=== PATIENT | male | born 1965 | race African-American/Black ===

== ENCOUNTER 2017-05-03 15:44 | Inpatient (IN) | payer MEDICAID ==
[~2017-05-03] VITALS: Ht 177.8 cm; Wt 107.8 kg
[~2017-05-03 15:44] MED LIST: BACL0.13; HYDR-3546
[2017-05-03] MEDS ORDERED: ACETAMINOPHEN 500 MG TAB PO ONE (16:00)
[2017-05-03 16:20] LABS: Basophils # (auto) 0.1 uL; Basophils % (auto) 0.9 % (0.0-2.0); Eosinophils # (auto) 0.1 uL; Hematocrit 38.2 % (41.0-53.0); Lymphocytes # (auto) 1.3 uL; Mean Corpuscular Volume 80.5 fL (80.0-100.0); Red Cell Distribution Width 13.8 % (11.8-14.3)
[2017-05-03 16:22] LABS: Eosinophils % (auto) 0.9 % (0.0-7.0); Hemoglobin 12.3 g/dL (13.5-17.5); Lymphocytes % (auto) 9.8 % (10.0-50.0); Mean Corpuscular Hemoglobin 26.1 pg (28.0-32.0); Mean Corpuscular Hgb Conc. 32.4 g/dL (32.0-36.0); Monocytes # (auto) 1.5 uL; Neutrophils # (auto) 10.5 uL; Neutrophils % (auto) 77.4 % (37.0-80.0); Platelet Count (auto) 683 10^3/uL (140-450); Red Blood Cells 4.74 10^6/uL (4.5-5.90); White Blood Cell 13.6 10^3/uL (4.4-10.8)
[2017-05-03 16:27] LABS: Albumin 3.1 g/dL (3.4-5.0); BUN/Creatinine Ratio 9.2; Calcium 9.4 mg/dL (8.5-10.1); Potassium 4.3 mmol/L (3.5-5.1)
[2017-05-03 16:30] LABS: Bilirubin, Total 0.6 mg/dL (0.2-1.0)
[2017-05-03] MEDS ORDERED: IBUPROFEN 600 MG TAB PO ONE (20:15)
[2017-05-03] MEDS ORDERED: VANCOMYCIN 1GM/250ML 250 ML IV ONE ×2 (22:26→22:30)
[2017-05-03] MEDS ORDERED: cefTRIAXone 1GM/10ml IVPUSH 10 ML IV ONE (22:30)
[2017-05-04] MEDS ORDERED: ACETAMINOPHEN 500 MG TAB PO PRN (01:30)
[2017-05-04] MEDS ORDERED: VANCOMYCIN PER PHARMACY 0 MG IV SCH (01:30)
[2017-05-04] MEDS ORDERED: ONDANSETRON HCL 4 MG/2 ML VIAL IV PRN (01:30)
[2017-05-04] MEDS ORDERED: VANCOMYCIN 1GM/250ML 250 ML IV ONE (02:00)
[2017-05-04 03:05] VITALS: BP 120/70
[2017-05-04] MEDS: HYDROcodone-ACET 5/325MG TAB PO PRN ×2 (04:01→20:52)
[2017-05-04 05:02] VITALS: BP 115/62
[2017-05-04 09:00] VITALS: BP 135/68
[2017-05-04 09:41] LABS: Basophils # (auto) 0.1 uL; Eosinophils # (auto) 0.2 uL; Hemoglobin 10.9 g/dL (13.5-17.5); Lymphocytes # (auto) 1.1 uL; Monocytes # (auto) 0.9 uL; Red Cell Distribution Width 13.5 % (11.8-14.3)
[2017-05-04 09:43] LABS: Basophils % (auto) 0.7 % (0.0-2.0); Eosinophils % (auto) 1.7 % (0.0-7.0); Hematocrit 33.6 % (41.0-53.0); Lymphocytes % (auto) 10.2 % (10.0-50.0); Mean Corpuscular Hgb Conc. 32.5 g/dL (32.0-36.0); Monocytes % (auto) 7.9 % (0.0-12.0); Neutrophils # (auto) 8.8 uL; Neutrophils % (auto) 79.5 % (37.0-80.0); Platelet Count (auto) 584 10^3/uL (140-450); Red Blood Cells 4.21 10^6/uL (4.5-5.90); White Blood Cell 11.1 10^3/uL (4.4-10.8)
[2017-05-04 10:08] LABS: Albumin 2.6 g/dL (3.4-5.0); BUN/Creatinine Ratio 10.6; Bilirubin, Total 0.6 mg/dL (0.2-1.0); Calcium 8.9 mg/dL (8.5-10.1); Potassium 4.1 mmol/L (3.5-5.1); Total Protein 7.8 g/dL (6.4-8.2)
[2017-05-04] MEDS: VANCOMYCIN 1,250 MG in D5W 5% 250 ML IV SCH ×2 (11:33→22:31)
[2017-05-04 13:00] VITALS: BP 117/75
[2017-05-04] MEDS ORDERED: cefTRIAXone 1GM/10ml IVPUSH 10 ML IV ONE (13:30)
[2017-05-04] MEDS ORDERED: METO-159 PO (15:03)
[2017-05-04] MEDS ORDERED: BACLOFEN 10 MG TAB PO ONE (16:15)
[2017-05-04] MEDS: SODIUM CHLORIDE 0.9% 1,000 ML IV SCH (16:53)
[2017-05-04 17:00] VITALS: BP 141/77
[2017-05-04 21:35] VITALS: BP 152/87
[2017-05-04] MEDS: BACLOFEN 10 MG TAB PO SCH (21:42)
[2017-05-05] MEDS: SODIUM CHLORIDE 0.9% 1,000 ML IV SCH ×2 (03:08→15:35)
[2017-05-05 05:00] VITALS: BP 135/71
[2017-05-05] MEDS: MORPHINE SULFATE 4 MG/ML SYR/VIAL IV PRN ×2 (05:01→23:07)
[2017-05-05 05:30] LABS: Basophils # (auto) 0.1 uL; Eosinophils # (auto) 0.2 uL; Red Cell Distribution Width 13.4 % (11.8-14.3)
[2017-05-05 05:34] LABS: Basophils % (auto) 0.8 % (0.0-2.0); Eosinophils % (auto) 2.3 % (0.0-7.0); Hematocrit 32.3 % (41.0-53.0); Hemoglobin 10.7 g/dL (13.5-17.5); Lymphocytes % (auto) 19.2 % (10.0-50.0); Mean Corpuscular Hemoglobin 26.3 pg (28.0-32.0); Mean Corpuscular Hgb Conc. 33.1 g/dL (32.0-36.0); Mean Corpuscular Volume 79.4 fL (80.0-100.0); Monocytes # (auto) 1.2 uL; Monocytes % (auto) 12.3 % (0.0-12.0); Neutrophils # (auto) 6.7 uL; Neutrophils % (auto) 65.4 % (37.0-80.0); Platelet Count (auto) 573 10^3/uL (140-450); Red Blood Cells 4.06 10^6/uL (4.5-5.90); White Blood Cell 10.2 10^3/uL (4.4-10.8)
[2017-05-05 05:57] LABS: Albumin 2.5 g/dL (3.4-5.0); Calcium 8.5 mg/dL (8.5-10.1); Magnesium 2.1 mg/dL (1.6-2.6)
[2017-05-05 05:59] LABS: BUN/Creatinine Ratio 8.7
[2017-05-05] MEDS: BACLOFEN 10 MG TAB PO SCH ×3 (05:59→21:52)
[2017-05-05 06:02] LABS: Bilirubin, Total 0.4 mg/dL (0.2-1.0); Total Protein 7.4 g/dL (6.4-8.2)
[2017-05-05] MEDS: cefTRIAXone 1GM/10ml IVPUSH 10 ML IV SCH (08:01)
[2017-05-05 09:00] VITALS: BP 105/55
[2017-05-05] MEDS ORDERED: IOHEXOL 300 MG/ML 100ML BOTTLE IJ ONE (09:02)
[2017-05-05] MEDS: MICAFUNGIN SODIUM 100 MG in SODIUM CHL 0.9% 100 ML IV SCH (10:38)
[2017-05-05] MEDS: VANCOMYCIN 1,250 MG in D5W 5% 250 ML IV SCH ×2 (11:01→23:06)
[2017-05-05 13:00] VITALS: BP 137/85
[2017-05-05 16:54] VITALS: BP 144/90
[2017-05-05 20:00] VITALS: BP 128/82
[2017-05-05 22:00] VITALS: BP 128/82
[2017-05-06 05:00] VITALS: BP 138/81
[2017-05-06] MEDS: SODIUM CHLORIDE 0.9% 1,000 ML IV SCH ×2 (05:33→18:38)
[2017-05-06] MEDS: BACLOFEN 10 MG TAB PO SCH ×3 (05:34→22:03)
[2017-05-06 07:16] LABS: Albumin 2.6 g/dL (3.4-5.0); BUN/Creatinine Ratio 7.7; Bilirubin, Total 0.4 mg/dL (0.2-1.0); Calcium 8.9 mg/dL (8.5-10.1); Potassium 3.9 mmol/L (3.5-5.1); Total Protein 8.2 g/dL (6.4-8.2)
[2017-05-06 07:20] LABS: Basophils # (auto) 0 uL; Basophils % (auto) 0.4 % (0.0-2.0); Eosinophils # (auto) 0.3 uL; Eosinophils % (auto) 3.3 % (0.0-7.0); Hemoglobin 11.3 g/dL (13.5-17.5); Monocytes # (auto) 1.1 uL
[2017-05-06 07:23] LABS: Hematocrit 34.4 % (41.0-53.0); Lymphocytes # (auto) 1.8 uL; Lymphocytes % (auto) 17.7 % (10.0-50.0); Mean Corpuscular Hemoglobin 26.1 pg (28.0-32.0); Mean Corpuscular Hgb Conc. 32.7 g/dL (32.0-36.0); Mean Corpuscular Volume 79.8 fL (80.0-100.0); Neutrophils # (auto) 7.1 uL; Neutrophils % (auto) 67.6 % (37.0-80.0); Nucleated Red Blood Cells % 0.1 %; Platelet Count (auto) 674 10^3/uL (140-450); Red Blood Cells 4.31 10^6/uL (4.5-5.90); Red Cell Distribution Width 13.7 % (11.8-14.3); White Blood Cell 10.5 10^3/uL (4.4-10.8)
[2017-05-06 09:27] VITALS: BP 147/73
[2017-05-06] MEDS: ASCORBIC ACID 500 MG TAB PO SCH ×2 (10:43→22:04)
[2017-05-06] MEDS: MULTIPLE VITAMINS W/ MINERALS TAB PO SCH ×2 (10:44→22:04)
[2017-05-06] MEDS: MICAFUNGIN SODIUM 100 MG in SODIUM CHL 0.9% 100 ML IV SCH (10:44)
[2017-05-06] MEDS: cefTRIAXone 1GM/10ml IVPUSH 10 ML IV SCH (10:45)
[2017-05-06] MEDS ORDERED: MEROPENEM 1gm/20ml IVPUSH 20 ML IV ONE (12:00)
[2017-05-06 12:07] VITALS: BP 135/77
[2017-05-06 13:49] LABS: Hepatitis B Surface Antibody Negative
[2017-05-06 13:59] LABS: Hepatitis B Surface Antigen Negative (Negative)
[2017-05-06 14:27] LABS: Hepatitis A Total Antibody Negative; Hepatitis C Antibody Negative (Negative)
[2017-05-06 14:28] LABS: Hepatitis B Core Total AB Negative
[2017-05-06 17:00] VITALS: BP 151/89
[2017-05-06 20:00] VITALS: BP 138/74
[2017-05-06 22:00] VITALS: BP 138/74
[2017-05-06] MEDS: MORPHINE SULFATE 4 MG/ML SYR/VIAL IV PRN (23:19)
[2017-05-06] MEDS: MEROPENEM 1gm/20ml IVPUSH 20 ML IV SCH (23:30)
[2017-05-07] MEDS: MORPHINE SULFATE 4 MG/ML SYR/VIAL IV PRN ×4 (03:47→21:04)
[2017-05-07 05:00] VITALS: BP 114/69
[2017-05-07] MEDS: MEROPENEM 1gm/20ml IVPUSH 20 ML IV SCH ×3 (06:01→21:59)
[2017-05-07] MEDS: BACLOFEN 10 MG TAB PO SCH ×3 (06:02→21:59)
[2017-05-07 07:01] LABS: Eosinophils # (auto) 0.3 uL; Eosinophils % (auto) 4.4 % (0.0-7.0); Hemoglobin 11.1 g/dL (13.5-17.5); Mean Corpuscular Volume 79.5 fL (80.0-100.0); Monocytes # (auto) 0.9 uL
[2017-05-07 07:10] LABS: Basophils # (auto) 0 uL; Basophils % (auto) 0.6 % (0.0-2.0); Lymphocytes # (auto) 2.1 uL; Lymphocytes % (auto) 26.4 % (10.0-50.0); Mean Corpuscular Hgb Conc. 32.7 g/dL (32.0-36.0); Monocytes % (auto) 11.7 % (0.0-12.0); Neutrophils # (auto) 4.5 uL; Neutrophils % (auto) 56.9 % (37.0-80.0); Nucleated Red Blood Cells % 0.1 %; Platelet Count (auto) 624 10^3/uL (140-450); Red Blood Cells 4.28 10^6/uL (4.5-5.90); Red Cell Distribution Width 13.3 % (11.8-14.3); White Blood Cell 7.9 10^3/uL (4.4-10.8)
[2017-05-07 07:36] LABS: Albumin 2.5 g/dL (3.4-5.0); Bilirubin, Direct 0.1 mg/dL (0-0.2); Bilirubin, Total 0.3 mg/dL (0.2-1.0); Total Protein 7.9 g/dL (6.4-8.2)
[2017-05-07 08:00] VITALS: BP 114/66
[2017-05-07] MEDS: SODIUM CHLORIDE 0.9% 1,000 ML IV SCH ×2 (08:47→11:55)
[2017-05-07 09:00] VITALS: BP 114/66
[2017-05-07] MEDS: MICAFUNGIN SODIUM 100 MG in SODIUM CHL 0.9% 100 ML IV SCH (09:24)
[2017-05-07] MEDS: ASCORBIC ACID 500 MG TAB PO SCH ×2 (09:25→22:00)
[2017-05-07] MEDS: MULTIPLE VITAMINS W/ MINERALS TAB PO SCH ×2 (09:25→22:00)
[2017-05-07 13:00] VITALS: BP 126/75
[2017-05-07 20:00] VITALS: BP 145/86
[2017-05-07 22:00] VITALS: BP 133/76
[2017-05-08] MEDS: MORPHINE SULFATE 4 MG/ML SYR/VIAL IV PRN ×4 (01:08→21:22)
[2017-05-08] MEDS: SODIUM CHLORIDE 0.9% 1,000 ML IV SCH (03:45)
[2017-05-08 05:27] VITALS: BP 122/71
[2017-05-08] MEDS: MEROPENEM 1gm/20ml IVPUSH 20 ML IV SCH ×2 (05:52→14:28)
[2017-05-08] MEDS: BACLOFEN 10 MG TAB PO SCH ×3 (06:00→22:29)
[2017-05-08 07:53] VITALS: BP 111/51
[2017-05-08] MEDS: ASCORBIC ACID 500 MG TAB PO SCH ×2 (10:42→22:30)
[2017-05-08] MEDS: MULTIPLE VITAMINS W/ MINERALS TAB PO SCH ×2 (10:42→22:30)
[2017-05-08] MEDS: MICAFUNGIN SODIUM 100 MG in SODIUM CHL 0.9% 100 ML IV SCH (11:17)
[2017-05-08 13:00] VITALS: BP 109/69
[2017-05-08 16:18] VITALS: BP 139/84
[2017-05-08 20:00] VITALS: BP 151/93
[2017-05-08 22:16] VITALS: BP 151/93
[2017-05-09] MEDS: MORPHINE SULFATE 4 MG/ML SYR/VIAL IV PRN ×4 (01:31→22:14)
[2017-05-09 05:16] VITALS: BP 99/77
[2017-05-09] MEDS: BACLOFEN 10 MG TAB PO SCH ×3 (05:37→22:14)
[2017-05-09 09:00] VITALS: BP 108/71
[2017-05-09] MEDS ORDERED: LINEZOLID 600MG/300ML 300 ML IV SCH (10:00)
[2017-05-09] MEDS: MICAFUNGIN SODIUM 100 MG in SODIUM CHL 0.9% 100 ML IV SCH (11:22)
[2017-05-09] MEDS: ASCORBIC ACID 500 MG TAB PO SCH ×2 (11:22→22:14)
[2017-05-09] MEDS: MULTIPLE VITAMINS W/ MINERALS TAB PO SCH ×2 (11:22→22:14)
[2017-05-09] MEDS: LINEZOLID 600MG/300ML 300 ML IV SCH (14:07)
[2017-05-09 17:00] VITALS: BP 123/76
[2017-05-09 22:26] VITALS: BP 130/78
[2017-05-10] MEDS: LINEZOLID 600MG/300ML 300 ML IV SCH ×2 (01:00→12:52)
[2017-05-10] MEDS: MORPHINE SULFATE 4 MG/ML SYR/VIAL IV PRN ×3 (02:22→21:00)
[2017-05-10 05:54] VITALS: BP 118/63
[2017-05-10] MEDS: BACLOFEN 10 MG TAB PO SCH ×3 (06:01→22:06)
[2017-05-10 08:00] VITALS: BP 166/85
[2017-05-10 08:10] VITALS: BP 114/69
[2017-05-10] MEDS: ASCORBIC ACID 500 MG TAB PO SCH ×2 (10:53→20:59)
[2017-05-10] MEDS: MULTIPLE VITAMINS W/ MINERALS TAB PO SCH ×2 (10:53→20:59)
[2017-05-10] MEDS: HYDROcodone-ACET 5/325MG TAB PO PRN (10:53)
[2017-05-10] MEDS: MICAFUNGIN SODIUM 100 MG in SODIUM CHL 0.9% 100 ML IV SCH (10:53)
[2017-05-10] MEDS ORDERED: ERTAPENEM SOD INJ 1 GM in SODIUM CHL 0.9% 50 ML IV ONE (12:15)
[2017-05-10 12:55] VITALS: BP 138/88
[2017-05-10 17:14] VITALS: BP 108/57
[2017-05-10 22:00] VITALS: BP 109/67
[2017-05-11] MEDS: HYDROcodone-ACET 5/325MG TAB PO PRN ×2 (00:06→19:45)
[2017-05-11] MEDS: LINEZOLID 600MG/300ML 300 ML IV SCH ×2 (01:06→13:34)
[2017-05-11] MEDS: MORPHINE SULFATE 4 MG/ML SYR/VIAL IV PRN ×2 (02:26→09:05)
[2017-05-11 05:00] VITALS: BP 94/58
[2017-05-11] MEDS: BACLOFEN 10 MG TAB PO SCH ×3 (06:24→21:43)
[2017-05-11 06:56] LABS: Red Cell Distribution Width 13.5 % (11.8-14.3); White Blood Cell 8.4 10^3/uL (4.4-10.8)
[2017-05-11 07:00] LABS: Basophils # (auto) 0.1 uL; Basophils % (auto) 1.1 % (0.0-2.0); Eosinophils # (auto) 0.2 uL; Eosinophils % (auto) 2.7 % (0.0-7.0); Hematocrit 34.9 % (41.0-53.0); Hemoglobin 11.4 g/dL (13.5-17.5); Lymphocytes # (auto) 3.4 uL; Lymphocytes % (auto) 39.8 % (10.0-50.0); Mean Corpuscular Hemoglobin 25.8 pg (28.0-32.0); Mean Corpuscular Hgb Conc. 32.7 g/dL (32.0-36.0); Mean Corpuscular Volume 78.8 fL (80.0-100.0); Monocytes # (auto) 0.9 uL; Monocytes % (auto) 10.2 % (0.0-12.0); Neutrophils # (auto) 3.9 uL; Neutrophils % (auto) 46.2 % (37.0-80.0); Nucleated Red Blood Cells % 0.2 %; Platelet Count (auto) 690 10^3/uL (140-450); Red Blood Cells 4.42 10^6/uL (4.5-5.90)
[2017-05-11 07:08] LABS: Albumin 2.6 g/dL (3.4-5.0); BUN/Creatinine Ratio 14.5; Calcium 8.6 mg/dL (8.5-10.1)
[2017-05-11 07:12] LABS: Bilirubin, Total 0.6 mg/dL (0.2-1.0); Total Protein 7.7 g/dL (6.4-8.2)
[2017-05-11 09:04] VITALS: BP 123/72
[2017-05-11] MEDS: ASCORBIC ACID 500 MG TAB PO SCH ×2 (09:04→21:44)
[2017-05-11] MEDS: MULTIPLE VITAMINS W/ MINERALS TAB PO SCH ×2 (09:04→21:43)
[2017-05-11] MEDS: MICAFUNGIN SODIUM 100 MG in SODIUM CHL 0.9% 100 ML IV SCH (09:05)
[2017-05-11] MEDS: ERTAPENEM SOD INJ 1 GM in SODIUM CHL 0.9% 50 ML IV SCH (09:15)
[2017-05-11 12:29] VITALS: BP 110/57
[2017-05-11 16:33] VITALS: BP 116/66
[2017-05-11 22:00] VITALS: BP 124/69
[2017-05-12] MEDS: LINEZOLID 600MG/300ML 300 ML IV SCH ×2 (00:33→13:48)
[2017-05-12] MEDS: HYDROcodone-ACET 5/325MG TAB PO PRN ×2 (00:34→05:55)
[2017-05-12 05:00] VITALS: BP_SYST 108; BP_SYST 120; BP_DIAS 65; BP_DIAS 69
[2017-05-12] MEDS: BACLOFEN 10 MG TAB PO SCH ×2 (05:54→13:48)
[2017-05-12 09:00] VITALS: BP 109/69
[2017-05-12] MEDS: ASCORBIC ACID 500 MG TAB PO SCH (09:17)
[2017-05-12] MEDS: MULTIPLE VITAMINS W/ MINERALS TAB PO SCH (09:17)
[2017-05-12] MEDS: ERTAPENEM SOD INJ 1 GM in SODIUM CHL 0.9% 50 ML IV SCH (09:17)
[2017-05-12] MEDS: MICAFUNGIN SODIUM 100 MG in SODIUM CHL 0.9% 100 ML IV SCH (09:17)
[2017-05-12 13:30] VITALS: BP 122/65
[2017-05-12 17:16] VITALS: BP 137/84
== END 2017-05-12 19:20 | DRG 720 ==
LOC: ER 15:44 → EDBD 15:44 → OVERFLOW 15:45 → WEST WING 05-04 03:05
PROVIDERS: ADMIT Nurse Practitioner Family; ATTEND Internal Medicine
PROC: 05H533Z Insertion of Infusion Device into Right Subclavian Vein, Percutaneous Approach (ICD-10-PCS; principal; 2017-05-07)
DX: A41.89 Other specified sepsis (principal); L89.154 Pressure ulcer of sacral region, stage 4; L89.324 Pressure ulcer of left buttock, stage 4; L89.314 Pressure ulcer of right buttock, stage 4; B49 Unspecified mycosis; E44.0 Moderate protein-calorie malnutrition; E86.0 Dehydration; G82.20 Paraplegia, unspecified; K76.0 Fatty (change of) liver, not elsewhere classified; Z74.01 Bed confinement status; F17.210 Nicotine dependence, cigarettes, uncomplicated; I10 Essential (primary) hypertension; Z83.3 Family history of diabetes mellitus; Z90.49 Acquired absence of other specified parts of digestive tract; R79.89 Other specified abnormal findings of blood chemistry; B96.20 Unspecified Escherichia coli [E. coli] as the cause of diseases classified elsewhere; Z16.12 Extended spectrum beta lactamase (ESBL) resistance; L08.89 Other specified local infections of the skin and subcutaneous tissue
CPT/HCPCS: 36415; 71045; 72132; 76705; 80053; 80076; 80202; 83605; 83735; 85025; 86704; 86706; 86708; 86803; 87040; 87077; 87081; 87186; 87205; 87340; 94761; 96365; 96375; 96379; J1335; J2248; J7060